=== PATIENT | female | born 1995 ===

== ENCOUNTER 2017-04-24 18:47 | Emergency (ER) | payer SELFPAY ==
[2017-04-24 19:36] VITALS: RESP 18; BMI 32.7
[2017-04-24 21:29] LABS: BASO # 0.01 K/mm3 (0.0-2.0); BASO % 0.1 % (0.0-3.0); EOS # 0.4 (0.0-0.7); EOS % 4.4 % (1.5-5.0); GRAN # 6.54 (1.4-6.5); GRAN % 64.9 % (50.0-68.0); HEMOGLOBIN 12.4 gm/dL (12.0-16.0); LYMPH # 2.6 (1.2-3.4); LYMPH % 25.6 % (22.0-35.0); MEAN CELL VOLUME 87.6 fL (80.0-105.0); MEAN CORPUSCULAR HEMOGLOBIN 30.1 pg (25.0-35.0); MEAN CORPUSCULAR HGB CONC 34.3 g/dl (31.0-37.0); MEAN PLATELET VOLUME 10.9 fl (7.0-11.0); MONO # 0.5 (0.1-0.6); PLATELET COUNT 222 10^3/uL (120.0-450.0); RBC 4.12 10^6/uL (3.5-6.1); RED CELL DISTRIBUTION WIDTH 12.8 % (11.5-14.5); WHITE BLOOD COUNT 10.1 10^3/ul (4.5-11.0)
[2017-04-24 21:30] LABS: PH,URINE 6.5 (4.7-8.0); URINE BILIRUBIN NEGATIVE (NEGATIVE); URINE BLOOD NEGATIVE (NEGATIVE); URINE GLUCOSE (UA) NEGATIVE (NEGATIVE); URINE LEUKOCYTE ESTERASE NEGATIVE Leu/uL (NEGATIVE); URINE NITRATE NEGATIVE (NEGATIVE); URINE PROTEIN TRACE mg/dL (<30 mg/dL)
[2017-04-24 21:32] LABS: URINE APPEARANCE CLEAR (CLEAR); URINE COLOR YELLOW (YELLOW)
[2017-04-24 21:33] LABS: HCG,QUALITATIVE URINE POSITIVE (NEGATIVE)
[2017-04-24 21:36] LABS: ALB/GLOB RATIO 1.2 (1.1-1.8); ALBUMIN 3.8 g/dL (3.0-4.8); ALT/SGPT 22 U/L (7-56); AST/SGOT 23 U/L (15-39); BLOOD UREA NITROGEN 14 mg/dL (7-21); CALCIUM 9.3 mg/dL (8.4-10.5); GFR AFRICAN-AMERICAN > 60; GFR NON-AFRICAN AMERICAN > 60; LIPASE 130 U/L (23-300)
[2017-04-24 22:13] LABS: URINE BACTERIA MOD (NEG)
[2017-04-24 22:14] LABS: URINE RBC 0 - 2 /hpf (0-2)
--- NOTE | 2017-04-24 22:30 | US ---
EXAM: US Abdomen Limited, Right Upper Quadrant CLINICAL HISTORY: 21 years old, female; Pain; Abdominal pain; ; Additional info: Ruq TECHNIQUE: Real-time ultrasound of the right upper quadrant with image documentation. EXAM DATE/TIME: 04/24/2017 7:57 PM COMPARISON: There are no prior studies for comparison. FINDINGS: Liver: Liver is unremarkable. There is hepatopedal flow in the main portal vein. Gallbladder: Gallbladder is collapsed with no large shadowing stones or sludge. Incomplete distention accentuates the gallbladder wall. Common bile duct: Common bile duct measures 2.9 mm in diameter. Pancreas: Pancreas is partially obscured by bowel gas. Visualized portion is unremarkable. Right kidney: Right kidney is unremarkable. Aorta: Visualized portions of the aorta and inferior vena cava are unremarkable. IMPRESSION: Limited evaluation of the gallbladder due to under distention, no large shadowing stones or ductal dilatation
--- NOTE | 2017-04-24 22:35 | US ---
EXAM: US After First Trimester, Transabdominal CLINICAL HISTORY: 21 years old, female; Pain; complicated by abdominal or pelvic pain; Right upper quadrant; Second trimester; Gestational age or lmp: Unknown LMP; ; Additional info: Abd pain TECHNIQUE: Real-time transabdominal obstetrical ultrasound of the maternal pelvis and a second or third trimester with image documentation. EXAM DATE/TIME: 04/24/2017 8:24 PM COMPARISON: There are no prior studies for comparison. FINDINGS: Fetus: There is a single living intrauterine gestation in cephalic presentation. There is a heart rate of 146 beats per minute. Placenta: Placenta is posterior. There is no previa or abruption. Amniotic fluid: Amnionic fluid volume appears normal Anatomy: Early gestational age limits evaluation of anatomy BIOMETRICS Gestational age by US: 14 weeks 6 days EFW: 107.9 g BPD: 2.8 cm, 15 weeks 0 days HC: 10.22 cm, 14 weeks 6 days AC: 8.64 cm, 14 weeks 6 days FL: 1.61 cm, 14 weeks 5 days MATERNAL: Right ovary measures 2.76 x 1.99 x 2.42 cm. There is a 1 cm follicle/cyst. There is expected blood flow on Doppler imaging. Left ovary could not be identified. IMPRESSION: 14 week 6 day single cephalic fetus, estimated date of delivery 10/17/17
[2017-04-24 23:25] VITALS: BP 113/52; PULSE 74; TEMP 98.6; O2SAT 100
--- NOTE | 2017-04-24 23:53 | ED PDOC ---
Arrival/HPI - General Chief Complaint: Abdominal Pain Time Seen by Provider: 04/24/17 19:37 - History of Present Illness Narrative History of Present Illness (Text): 04/24/17 19:37 Krissy Middleton is a 21 year old female who presents to the emergency department complaining of abdominal pain associated with nausea for 2 months. Patient also states that she might be . Denies any fever, chills, chest pain, shortness of breath, vomiting, diarrhea, urinary symptoms, or any other complaints at this time. Time/Duration: Other (2 months ) Symptom Onset: Gradual Symptom Course: Unchanged Severity Level: Mild Activities at Onset: Light Past Medical History - Provider Review Nursing Documentation Reviewed: Yes - Psychiatric Hx Depression: No Hx Emotional Abuse: No Hx Physical Abuse: No Hx Substance Use: No - Surgical History Hx Section: Yes - Anesthesia Hx Anesthesia: Yes Hx Anesthesia Reactions: No Hx Malignant Hyperthermia: No - Suicidal Assessment Feels Threatened In Home Enviroment: No Family/Social History - Physician Review Nursing Documentation Reviewed: Yes Family/Social History: No Known Family HX Smoking Status: Never Smoked Hx Alcohol Use: No Hx Substance Use: No Hx Substance Use Treatment: No Allergies/Home Meds Allergies/Adverse Reactions: Allergies No Known Allergies Allergy (Verified 04/24/17 19:35) Review of Systems - Physician Review All systems were reviewed & negative as marked: Yes - Review of Systems Constitutional: Normal. absent: Fatigue, Fevers Respiratory: Normal. absent: SOB, Cough, Sputum Cardiovascular: Normal. absent: Chest Pain Gastrointestinal: Abdominal Pain, Nausea. absent: Diarrhea, Vomiting Neurological: Normal. absent: Headache, Dizziness Psychiatric: Normal Physical Exam Vital Signs Reviewed: Yes Vital Signs Temp Pulse Resp BP Pulse Ox 04/24/17 23:25 98.6 F 74 18 113/52 L 100 04/24/17 19:30 98.8 F 68 18 104/65 98 Temperature: Afebrile Blood Pressure: Normal Pulse: Regular Respiratory Rate: Normal Appearance: Positive for: Well-Appearing, Non-Toxic, Comfortable Pain Distress: None Mental Status: Positive for: Alert and Oriented X 3 - Systems Exam Head: Present: Atraumatic, Normocephalic Pupils: Present: PERRL Conjunctiva: Present: Normal Mouth: Present: Moist Mucous Membranes Respiratory/Chest: Present: Clear to Auscultation, Good Air Exchange. No: Respiratory Distress, Accessory Muscle Use Cardiovascular: Present: Regular Rate and Rhythm, Normal S1, S2. No: Murmurs Abdomen: Present: Normal Bowel Sounds. No: Tenderness, Distention, Peritoneal Signs, Rebound, Guarding Upper Extremity: Present: Normal Inspection. No: Cyanosis, Edema Lower Extremity: Present: Normal Inspection. No: Edema Neurological: Present: GCS=15, CN II-XII Intact, Speech Normal, Motor Func Grossly Intact, Normal Sensory Function Skin: Present: Warm, Dry, Normal Color. No: Rashes Psychiatric: Present: Alert, Oriented x 3, Normal Insight, Normal Concentration Medical Decision Making ED Course and Treatment: 04/24/17 19:37 Impression: A 21 year old female who presents to the emergency department complaining of abdominal pain and nausea for 2 months. Plan: -- Labs -- HCG -- Urinalysis -- Ultrasound -- Reassess and disposition Progress Notes: US Abdomen Limited, Right Upper Quadrant results reviewed: FINDINGS: Liver: Liver is unremarkable. There is hepatopedal flow in the main portal vein. Gallbladder: Gallbladder is collapsed with no large shadowing stones or sludge. Incomplete distention accentuates the gallbladder wall. Common bile duct: Common bile duct measures 2.9 mm in diameter. Pancreas: Pancreas is partially obscured by bowel gas. Visualized portion is unremarkable. Right kidney: Right kidney is unremarkable. Aorta: Visualized portions of the aorta and inferior vena cava are unremarkable. IMPRESSION: Limited evaluation of the gallbladder due to under distention, no large shadowing stones or ductal dilatation EXAM: US After First Trimester, results reviewed: FINDINGS: Fetus: There is a single living intrauterine gestation in cephalic presentation. There is a heart rate of 146 beats per minute. Placenta: Placenta is posterior. There is no previa or abruption. Amniotic fluid: Amnionic fluid volume appears normal Anatomy: Early gestational age limits evaluation of anatomy BIOMETRICS Gestational age by US: 14 weeks 6 days EFW: 107.9 g BPD: 2.8 cm, 15 weeks 0 days HC: 10.22 cm, 14 weeks 6 days AC: 8.64 cm, 14 weeks 6 days FL: 1.61 cm, 14 weeks 5 days MATERNAL: Right ovary measures 2.76 x 1.99 x 2.42 cm. There is a 1 cm follicle/cyst. There is expected blood flow on Doppler imaging. Left ovary could not be identified. IMPRESSION: 14 week 6 day single cephalic fetus, estimated date of delivery 04/24/17 23:56 On re-evaluation, patient feels better and is in no acute distress. I have discussed the results and plan with the patient, who expresses understanding. Patient in agreement with plan to be discharged home. Patient is stable for discharge. Patient was instructed to follow up with OB within few days and return if symptoms worsen or new concerning symptoms arise. - Lab Interpretations Lab Results: 04/24/17 21:12 04/24/17 21:12 Lab Results 04/24/17 21:12: Sodium 136, Potassium 4.1, Chloride 105, Carbon Dioxide 24, Anion Gap 11, BUN 14, Creatinine 0.5, Est GFR ( Amer) > 60, Est GFR (Non- Af Amer) > 60, Random Glucose 83, Calcium 9.3, Total Bilirubin 0.5, AST 23, ALT 22, Alkaline Phosphatase 71, Total Protein 6.9, Albumin 3.8, Globulin 3.1, Albumin/Globulin Ratio 1.2, Lipase 130 04/24/17 21:12: WBC 10.1, RBC 4.12, Hgb 12.4, Hct 36.1, MCV 87.6, MCH 30.1, MCHC 34.3, RDW 12.8, Plt Count 222, MPV 10.9, Gran % 64.9, Lymph % (Auto) 25.6, [place] % (Auto) 5.0, Eos % (Auto) 4.4, Baso % (Auto) 0.1, Gran # 6.54 H, Lymph # 2.6, [place] # 0.5, Eos # 0.4, Baso # 0.01 04/24/17 21:00: Urine Color Yellow, Urine Appearance Clear, Urine pH 6.5, Ur Specific [place] 1.025, Urine Protein Trace H, Urine Glucose (UA) Negative, Urine Ketones Trace H, Urine Blood Negative, Urine Nitrate Negative, Urine Bilirubin Negative, Urine Urobilinogen 1.0 H, Ur Leukocyte Esterase Negative, Urine RBC 0 - 2, Urine WBC 1 - 3, Ur Epithelial Cells 1 - 3, Urine Bacteria Mod , Urine HCG, Qual Positive - RAD Interpretation Radiology Orders: 04/24/17 19:57 GALL BLADDER [US] Stat 04/24/17 20:24 AGE [US] Stat - Scribe Statement The provider has reviewed the documentation as recorded by the Valentinaibe Helen Onofre Provider Attestation: Provider Scribe Attestation: All medical record entries made by the Scribe were at my direction and personally dictated by me. I have reviewed the chart and agree that the record accurately reflects my personal performance of the history, physical exam, medical decision making, and the department course for this patient. I have also personally directed, reviewed, and agree with the discharge instructions and disposition. Disposition/Present on Arrival - Present on Arrival Any Indicators Present on Arrival: No History of DVT/PE: No History of Uncontrolled Diabetes: No Urinary Catheter: No History of Decub. Ulcer: No History Surgical Site Infection Following: None - Disposition Have Diagnosis and Disposition been Completed?: Yes Diagnosis: , Urinary tract infection Disposition: HOME/ ROUTINE Disposition Time: 23:55 Condition: GOOD Discharge Instructions (ExitCare): (ED), Urinary Tract Infection in Women (ED) Prescriptions: Cephalexin [Keflex] 500 mg PO BID #14 capsule Referrals: PCP,NO [Primary Care Provider] - Follow up with primary
== END 2017-04-24 23:45 | disposition home or self-care (01) ==
LOC: ED 18:47
DX: O23.41 Unspecified infection of urinary tract in pregnancy, first trimester (principal); Z3A.14 14 weeks gestation of pregnancy